=== PATIENT | male | born 1995 | race African-American/Black ===

== ENCOUNTER 2024-03-31 16:26 | Emergency (ER) | payer MEDICAID ==
[~2024-03-31] VITALS: Ht 177.8 cm; Wt 131.5 kg
[2024-03-31 17:23] LABS: BASO % 0.4 % (0.0-1.0); EOS % 0.5 % (1.0-4.0); HEMATOCRIT 41.6 % (42.0-52.0); LYMPH % 12.3 % (27.0-41.0); MEAN CELL VOLUME 86.7 fl (80.0-94.0); MEAN CORPUSCULAR HGB 28.3 pg (27.0-31.0); MEAN CORPUSCULAR HGB CONC 32.7 g/dl (33.0-37.0); MEAN PLATELET VOLUME 11.7 fl (9.6-12.3); MONO # 0.4 10*3/uL (0.1-1.0); MONO % 4.8 % (3.0-9.0); NEUT # 6.6 10*3/uL (2.3-7.9); NEUT % 81.8 % (47.0-73.0); PLATELET COUNT AUTOMATED 190 10*3/uL (130-400); RED CELL DISTRI WIDTH 13.1 % (0-14.5); WHITE BLOOD COUNT 8.1 10*3/uL (4.8-10.8)
[2024-03-31 17:42] LABS: BUN 12 mg/dl (9-23); CHLORIDE 107 mmol/L (98-107); POTASSIUM 3.6 mmol/L (3.4-5.1)
[2024-03-31] MEDS ORDERED: Ondansetron Hydrochloride 4 MG TAB PO ONE (17:55)
== END 2024-03-31 18:58 | disposition home or self-care (01) ==
LOC: ED 16:26
PROVIDERS: Physician Assistant Medical
DX: T59.891A Toxic effect of other specified gases, fumes and vapors, accidental (unintentional), initial encounter (principal); Y92.89 Other specified places as the place of occurrence of the external cause